=== PATIENT | female | born 1945 | race Caucasian/White ===

== ENCOUNTER 2017-06-08 12:03 | Emergency (ER) | payer MEDICARE, BC ==
[2017-06-08 12:09] VITALS: BP 166/62; PULSE 72; TEMP 98.5
[2017-06-08] MEDS ORDERED: APAP/HYDROCODONE 325/7.5 TAB PO PRN (12:11)
[2017-06-08] MEDS ORDERED: KETOROLAC TROMETHAMINE 30 MG/ML SOL IM ONE (12:11)
[2017-06-08] MEDS ORDERED: APAP/HYDROCODONE 325/5 TAB PO ONE (12:16)
[2017-06-08] MEDS ORDERED: KETOROLAC TROMETHAMINE 30 MG/ML SOL ONE (12:18)
[2017-06-08] MEDS ORDERED: APAP/HYDROCODONE 325/5 TAB ONE (12:18)
[2017-06-08] MEDS ORDERED: ONDANSETRON 4 MG ODT BU ONE (12:44)
[2017-06-08] MEDS ORDERED: ONDANSETRON 4 MG ODT ONE (12:45)
[2017-06-08 13:25] VITALS: RESP 70; O2SAT 94
== END 2017-06-08 13:32 | disposition home or self-care (01) | DRG 552 ==
LOC: ED 12:03
DX: M54.5 Low back pain (principal); M54.16 Radiculopathy, lumbar region
CPT/HCPCS: 73501; 96372; 99282; 99283; J1885

== ENCOUNTER 2017-06-12 12:35 | Emergency (ER) | payer MEDICARE, BC ==
[2017-06-12] MEDS ORDERED: KETOROLAC TROMETHAMINE 30 MG/ML SOL IM ONE (12:46)
[2017-06-12] MEDS ORDERED: KETOROLAC TROMETHAMINE 30 MG/ML SOL ONE (12:47)
[2017-06-12] MEDS ORDERED: FLEET ENEMA PR PRN (13:28)
[2017-06-12 14:38] VITALS: BP 150/69; PULSE 58; RESP 16; TEMP 96.4; O2SAT 98
== END 2017-06-12 14:29 | disposition home or self-care (01) | DRG 552 ==
LOC: ED 12:35
DX: M54.41 Lumbago with sciatica, right side (principal)
CPT/HCPCS: 96372; 99283; J1885